=== PATIENT | male | born 1970 | race Two or more races ===

== ENCOUNTER 2017-06-01 00:30 | Emergency (ER) | payer OTHER ==
[~2017-06-01] VITALS: Ht 162.6 cm; Wt 68.0 kg
[2017-06-01 01:11] VITALS: BP 143/81
[2017-06-01] MEDS ORDERED: UNABLE MC (01:11)
[2017-06-01] MEDS ORDERED: HYDR-971 PO (01:44)
--- NOTE | 2017-06-01 01:44 | PHYS DOC ---
Past Medical History Past Medical History: Hypothyroid Past Surgical History: No Surgical History Alcohol Use: None Drug Use: None Adult General Chief Complaint Chief Complaint: ANKLE INJURY HPI HPI Patient is a 46 year old male who comes to the ED with left ankle pain. The patient was going down stairs, on the last step, he rolled his left ankle, he felt and heard popping. Since then he has not been able to bear weight. He denies knee pain or pain anywhere else. Review of Systems Review of Systems Musculoskeletal: As in history of present illness Neurologic: Denies head injury Current Medications Current Medications Current Medications Medications (Trade) Dose Ordered Sig/Michael Start Time Stop Time Status Last Admin Dose Admin Acetaminophen/ Hydrocodone Bitart (Lortab 5/325) 1 tab 1X ONCE 06/01/17 01:45 06/01/17 01:46 DC Allergies Allergies Allergies Coded Allergies Type Severity Reaction Last Updated Verified No Known Drug Allergies 06/01/17 No Physical Exam Physical Exam Constitutional: Well developed, well nourished, no acute distress, non-toxic appearance. [] HENT: Normocephalic, atraumatic, bilateral external ears normal, nose normal. [] Eyes: conjunctiva normal, no discharge. [] Neck: Normal range of motion, no stridor. [] Skin: Warm, dry, no erythema, no rash. [] Extremities: Left leg: Knee without swelling or tenderness. Proximal fibula nontender. Ankle has swelling over the lateral aspect. Foot is without swelling or tenderness. Sensation and good DP pulse present on the left foot. Neurologic: Alert and oriented X 3, normal motor function, normal sensory function, no focal deficits noted. [] Current Patient Data Vital Signs Vital Signs Date Time Temp Pulse Resp B/P (MAP) Pulse Ox O2 Delivery O2 Flow Rate FiO2 06/01/17 01:11 98.1 63 20 100 Room Air 98.1 EKG EKG [] Radiology/Procedures Radiology/Procedures Three-view x-ray of the left ankle read by me. There is a nondisplaced fracture of the distal fibula. [] Course & Med Decision Making Course & Med Decision Making Pertinent Labs and Imaging studies reviewed. (See chart for details) Nondisplaced fracture of the distal fibula, left. Patient was given crutches and placed in a well-padded stirrup splint. See instructions for plan. [] Dragon Disclaimer Dragon Disclaimer This electronic medical record was generated, in whole or in part, using a voice recognition dictation system. Departure Departure Impression: Primary Impression: Closed fracture of left distal fibula Disposition: 01 HOME, SELF-CARE Condition: STABLE Referrals: MAE SCHMITT (PCP) SHANITA HUNTER MD Patient Instructions: Ankle Fracture, [id number] Additional Instructions: Leave the splint on and keep it dry. Stay off of your ankle and keep it elevated as much as possible. Ice 15-20 minutes out of every 1-2 hours. Nonweightbearing, use crutches. For pain, ibuprofen 800 mg every 6-8 hours. For more severe pain, hydrocodone as directed. Hydrocodone is an opiate, it will be sedating and constipating. Do not drive while taking hydrocodone. Call tomorrow for appointment with orthopedics for fracture care. Tell them you have a fracture of the distal fibula. Scripts Hydrocodone/Apap 5-325 (NORCO 5-325 TABLET) 1 Each Tablet 1-2 TAB PO Q4-6HRS for Pain, broken ankle, #20 TAB Prov: FEDE DOMINGUEZ MD 06/01/17 FEDE DOMINGUEZ MD Jun 01, 2017 01:44
[2017-06-01] MEDS ORDERED: HYDROcodone/APAP 5/325MG 1 TAB TABLET PO ONE (01:45)
--- NOTE | 2017-06-01 07:50 | RAD ---
EXAM: Left ankle 3 views. HISTORY: Left ankle swelling after injury COMPARISON: None. FINDINGS: Three views of the left ankle are obtained. There is an oblique fracture of the distal fibula. There is no displacement. Overlying swelling is noted. The alignment of the mortise is normal. Joint spaces are maintained. Mild atherosclerotic calcifications are noted. There is some ossification at the Achilles tendon insertion. IMPRESSION: 1. Nondisplaced oblique fracture of the distal fibula.
== END 2017-06-01 02:17 | disposition home or self-care (01) ==
LOC: ER 00:30
DX: S82.492A Other fracture of shaft of left fibula, initial encounter for closed fracture (principal); E03.9 Hypothyroidism, unspecified; X50.9XXA Other and unspecified overexertion or strenuous movements or postures, initial encounter; Y93.89 Activity, other specified; Y99.8 Other external cause status; Y92.89 Other specified places as the place of occurrence of the external cause
CPT/HCPCS: 29505; 73610; 99284-25